=== PATIENT | male | born 1955 | race Caucasian/White ===

== ENCOUNTER 2018-12-30 14:41 | Outpatient (RCR) | payer OTHER | END 2019-01-14 | LOC: OT 14:41 | PROVIDERS: ATTEND Plastic Surgery | DX: M18.12 Unilateral primary osteoarthritis of first carpometacarpal joint, left hand (principal) ==

== ENCOUNTER → 2019-03-04 | Day surgery (SDC) | payer OTHER ==
[~2019-03-04] MED LIST: AMBIEN5 MG PO; CEFAZOLIN SOD 1 GM/NS 50ML 50 ML IV ONE; COQ-10100 MG PO; COREG12.5 MG PO; DEXAMETHASONE SOD PHOS INJ 4 MG/ML VIAL ONE; FENTANYL CITRATE/PF 100MCG/2 ML INJ ONE; FLOMAX0.4 MG PO; KETOROLAC TROMETHAMINE 30 MG/ML VIAL ONE; LIDOCAINE HCL 2% LOCAL INJ 5 ML SDV VIAL INJ ONE; MIDAZOLAM HCL 2 MG/2 ML VIAL ONE; MULTI-VITAMIN1 EACH PO; ONDANSETRON HCL INJ 2MG/ML 2ML 2 MG/ML VIAL ONE; PROPOFOL IV EMULSION 10 MG/ML 20 ML VIAL ONE; SEVOFLURANE INHAL SOLN 250 ML PEN BTL ONE; STAXYN10 MG PO; VITAMIN B12-FO1 EACH PO; vitamin d3
[2019-03-04 08:40] VITALS: BP 108/67
--- NOTE | 2019-03-04 11:46 | Operative Report ---
DATE OF PROCEDURE: 03/04/2019 SURGEON: Dimitry Dillard MD PREOPERATIVE DIAGNOSIS: Stenosing tenosynovitis of left thumb. POSTOPERATIVE DIAGNOSIS: Stenosing tenosynovitis of left thumb. OPERATION PERFORMED: Tenovaginotomy of left thumb. ANESTHESIA: General. HISTORY: The patient is a 63-year-old [id number] male who presents with stenosing tenosynovitis of the left thumb that is recalcitrant to conservative treatment. The risks, benefits, and alternatives of treatment were discussed with the patient and they are prepared to undergo the procedure as outlined. DESCRIPTION OF PROCEDURE: The patient was brought to the operating theater. After the induction of adequate general/regional anesthesia, the patient was prepped and draped in a supine position. A time out was performed by the entire operating room team. An oblique incision was marked out over the A1 chente of the left thumb. The upper extremity was exsanguinated, and a tourniquet was inflated to a pressure of 250 mmHg. The incision was made through the skin and subcutaneous tissues. All venous tributaries were controlled with bipolar cautery. The incision was deepened through the palmar tissues. The neurovascular bundles on the radial and ulnar sides of the flexor tendon sheath were identified and retracted away from the flexor tendon sheath and preserved. The A1 chente of the affected finger was identified and incised longitudinally, taking care to protect and preserve the flexor tendons within the sheath. After the complete length of the chente had been transected, the tendons were placed in a range of motion. There was noted to be good motion without any locking. The wound was then copiously irrigated with bacteriostatic saline and closed with 5-0 nylon in an interrupted horizontal mattress fashion. A Marcaine field block was performed at the operative site. The tourniquet was deflated. All the fingers pinked up nicely. A sterile bulky conforming bandage was applied to the hand, and the patient was returned to the recovery room in satisfactory condition and was discharged with a postoperative instruction sheet as well as a followup appointment. Dimirty Dillard MD ER/MODL /[id number]
== END | disposition home or self-care (01) ==
LOC: OR 05:00
PROVIDERS: ATTEND Plastic Surgery
DX: M65.312 Trigger thumb, left thumb (principal); I10 Essential (primary) hypertension; I48.91 Unspecified atrial fibrillation; Z01.810 Encounter for preprocedural cardiovascular examination; Z85.828 Personal history of other malignant neoplasm of skin
CPT/HCPCS: 26055; 93005; J0690; J1100; J1885; J2001; J2250; J2405; J2704

== ENCOUNTER → 2020-05-04 | Day surgery (SDC) | payer OTHER ==
[2020-04-29 09:39] LABS: BASOPHILS # (AUTO) 0.1 (0.0-0.1); BASOPHILS % 0.9 % (0.0-1.0); EOSINOPHILS # (AUTO) 0.2 (0.0-0.4); EOSINOPHILS % 3.6 % (0.0-6.0); HEMATOCRIT 43.8 % (38.2-49.6); HEMOGLOBIN 14.6 g/dL (14.0-18.0); LYMPHOCYTES # (AUTO) 1.9 (1.0-3.2); LYMPHOCYTES % 29.9 % (18.0-39.1); MEAN CORPUSCULAR HEMOGLOBIN 30.6 pg (28-32); MEAN CORPUSCULAR HGB CONC 33.3 g/dL (31-35); MEAN CORPUSCULAR VOLUME 91.8 fL (81-99); MONOCYTES # (AUTO) 0.7 (0.2-0.8); MONOCYTES % 11.7 % (4.4-11.3); NEUTROPHILS # (AUTO) 3.4 (2.1-6.9); NEUTROPHILS % 53.6 % (38.7-80.0); PLATELET COUNT 221 x10e3/uL (140-360); RED BLOOD COUNT 4.77 x10e6/uL (4.3-5.7); RED CELL DISTRIBUTION WIDTH 12.6 % (11.7-14.4)
--- NOTE | 2020-04-29 11:20 | Diagnostic Imaging Report ---
EXAMINATION: CHEST 2 VIEWS INDICATION: Pre-operative COMPARISON: None FINDINGS: LINES/TUBES:None LUNGS:The lungs are well-inflated. No focal consolidation or pulmonary edema. PLEURA:No pleural effusion or pneumothorax. MEDIASTINUM:The cardiomediastinal silhouette appears normal in size and shape. BONES/SOFT TISSUES:No acute osseous injury. ABDOMEN:No free air under the diaphragm. IMPRESSION: No focal pneumonia or pulmonary edema. Signed by: Aries Sheffield MD on 04/29/2020 11:17 AM
[~2020-05-04] MED LIST changes: +ASPIR 8181 MG PO; +BUPIVACAINE HCL 0.5% INJ 30 ML VIAL INJ ONE; +DOXEPIN HCL25 MG PO; +EPHEDRINE SULFATE INJ 50 MG/ML VIAL ONE; -KETOROLAC TROMETHAMINE 30 MG/ML VIAL ONE; +MUPIROCIN 2% OINT 22 GM TUBE ONE; +REVATIO20 MG PO; +TESTOSTERONE25 GM INH; +VITAMIN C500 M4 PO
[2020-05-04 08:55] VITALS: BP 117/77
--- NOTE | 2020-05-04 09:52 | Operative Report ---
DATE OF PROCEDURE: 05/04/2020 SURGEON: Dimitry Dillard MD PREOPERATIVE DIAGNOSIS: Stenosing tenosynovitis of right thumb, right long finger, and right ring finger. POSTOPERATIVE DIAGNOSIS: Stenosing tenosynovitis of right thumb, right long finger, and right ring finger. OPERATION PERFORMED: Tenovaginotomy of right thumb, right long finger, and right ring finger. ANESTHESIA: General. HISTORY: The patient is a 64-year-old, who presents with stenosing tenosynovitis of the right thumb, right long finger, and right ring finger, that is recalcitrant to conservative treatment. The risks, benefits, and alternatives of treatment were discussed with the patient and they are prepared to undergo the procedure as outlined. DESCRIPTION OF PROCEDURE: The patient was brought to the operating theater. After the induction of adequate general/regional anesthesia, the patient was prepped and draped in a supine position. A time out was performed by the entire operating room team. An oblique incision was marked out over the A1 chente of the right thumb, right long finger, and right ring finger. The upper extremity was exsanguinated, and a tourniquet was inflated to a pressure of 250 mmHg. The incision was made through the skin and subcutaneous tissues. All venous tributaries were controlled with bipolar cautery. The incision was deepened through the palmar tissues. The neurovascular bundles on the radial and ulnar sides of the flexor tendon sheath were identified and retracted away from the flexor tendon sheath and preserved. The A1 chente of the affected finger was identified and incised longitudinally, taking care to protect and preserve the flexor tendons within the sheath. After the complete length of the chente had been transected, the tendons were placed in a range of motion. There was noted to be good motion without any locking. The wound was then copiously irrigated with bacteriostatic saline and closed with 5-0 nylon in an interrupted horizontal mattress fashion. A Marcaine field block was performed at the operative site. The tourniquet was deflated. All the fingers pinked up nicely. A sterile bulky conforming bandage was applied to the hand, and the patient was returned to the recovery room in satisfactory condition and was discharged with a postoperative instruction sheet as well as a followup appointment. MD RONN Meade/MODL /[id number]
== END | disposition home or self-care (01) ==
LOC: OR 05:28
PROVIDERS: ATTEND Plastic Surgery
DX: M65.311 Trigger thumb, right thumb (principal); M65.341 Trigger finger, right ring finger; M65.331 Trigger finger, right middle finger; I45.10 Unspecified right bundle-branch block; I10 Essential (primary) hypertension; I48.91 Unspecified atrial fibrillation; F41.9 Anxiety disorder, unspecified; Z01.810 Encounter for preprocedural cardiovascular examination; Z01.812 Encounter for preprocedural laboratory examination; Z01.818 Encounter for other preprocedural examination; Z11.59 Encounter for screening for other viral diseases; Z79.82 Long term (current) use of aspirin
CPT/HCPCS: 26055 ×3; 36415; 71046; 85025; 93005; J0690; J1100; J2001; J2250; J2405; J2704; J3010; U0002

== ENCOUNTER → 2022-03-09 | Day surgery (SDC) | payer BC, OTHER ==
[2022-03-07 09:46] LABS: BASOPHILS # (AUTO) 0.1 (0.0-0.1); BASOPHILS % 0.8 % (0.0-1.0); EOSINOPHILS # (AUTO) 0.2 (0.0-0.4); EOSINOPHILS % 3.3 % (0.0-6.0); HEMATOCRIT 44.1 % (38.2-49.6); HEMOGLOBIN 14.4 g/dL (14.0-18.0); LYMPHOCYTES # (AUTO) 1.9 (1.0-3.2); LYMPHOCYTES % 30.3 % (18.0-39.1); MEAN CORPUSCULAR HEMOGLOBIN 31.4 pg (28-32); MEAN CORPUSCULAR HGB CONC 32.7 g/dL (31-35); MEAN CORPUSCULAR VOLUME 96.1 fL (81-99); MONOCYTES # (AUTO) 0.8 (0.2-0.8); MONOCYTES % 12.3 % (4.4-11.3); NEUTROPHILS # (AUTO) 3.3 (2.1-6.9); PLATELET COUNT 262 x10e3/uL (140-360); RED BLOOD COUNT 4.59 x10e6/uL (4.3-5.7); RED CELL DISTRIBUTION WIDTH 13.2 % (11.7-14.4)
[~2022-03-09] MED LIST changes: +ACETAMINOPHEN-1 EAC4 PO; +BUPIVACAINE HC 0.75% PF 10ML VIAL INJ ONE; -BUPIVACAINE HCL 0.5% INJ 30 ML VIAL INJ ONE; -CEFAZOLIN SOD 1 GM/NS 50ML 50 ML IV ONE; +DEXAMETHASONE SOD PHOS INJ 4 MG/ML SDV ONE; -DEXAMETHASONE SOD PHOS INJ 4 MG/ML VIAL ONE; -EPHEDRINE SULFATE INJ 50 MG/ML VIAL ONE; +KRILL OIL500 MG; +MELOXICAM7.5 MG PO; +POVIDONE IODINE 0.05% 0.05 % ML PO ONE; +ZINC
[2022-03-09 08:03] VITALS: BP 107/61
== END | disposition home or self-care (01) ==
LOC: OR 05:26
PROVIDERS: ATTEND Plastic Surgery
DX: M65.332 Trigger finger, left middle finger (principal); M65.342 Trigger finger, left ring finger; M65.322 Trigger finger, left index finger; I10 Essential (primary) hypertension; I45.10 Unspecified right bundle-branch block; I49.3 Ventricular premature depolarization; K57.90 Diverticulosis of intestine, part unspecified, without perforation or abscess without bleeding; Z01.810 Encounter for preprocedural cardiovascular examination; Z01.812 Encounter for preprocedural laboratory examination; Z20.822 Contact with and (suspected) exposure to COVID-19; Z79.82 Long term (current) use of aspirin; Z79.899 Other long term (current) drug therapy
CPT/HCPCS: 26055 ×3; 36415; 85025; 93005; J0690; J1100; J2001; J2250; J2405; J2704; J3010; U0002